=== PATIENT | male | born 2000 | race Two or more races ===

== ENCOUNTER 2024-07-13 10:05 | Observation (INO) ==
[2024-07-13] MEDS: ONDANSETRON INJ 2 MG/ML 2 ML VIAL IV STA (10:53)
[2024-07-13] MEDS: fentaNYL citrate PF 100 MCG/2 ML VIAL IV STA (10:53)
[2024-07-13 11:00] LABS: Basophils # (auto) 0.02 K/uL (0.00-0.20); Basophils % (auto) 0.2 %; Eosinophils # (auto) 0.02 K/uL (0.00-0.50); Eosinophils % (auto) 0.2 %; Hematocrit (blood only) 46.8 % (42.0-52.0); Immature Granulocytes # (auto) 0.03 K/uL (0.01-0.20); Immature Granulocytes % (auto) 0.4 %; Lymphocytes # (auto) 1.45 K/uL (1.20-3.40); Lymphocytes % (auto) 17.8 %; Mean Corpuscular Hemoglobin 28.1 pg (25.0-34.0); Mean Corpuscular Hgb Conc 34.2 g/dL (32.0-36.0); Mean Corpuscular Volume 82.2 fL (80.0-100.0); Mean Platelet Volume 10.2 fL (9.4-12.4); Monocytes # (auto) 0.72 K/uL (0.11-0.59); Monocytes % (auto) 8.8 %; Neutrophils # (auto) 5.91 K/uL (1.40-6.50); Neutrophils % (auto) 72.6 %; Platelet Count 254 K/uL (130-400); RDW Coefficient of Variation 11.9 % (11.5-14.5); RDW Standard Deviation 35.5 fL (36.4-46.3); Red Blood Count 5.69 M/uL (4.70-6.10); White Blood Count 8.15 K/ul (4.8-10.8)
--- NOTE | 2024-07-13 11:14 | Emergency Department Note ---
Impression & Plan Acute appendicitis, Right lower quadrant abdominal pain ED Provider Note HISTORY OF PRESENT ILLNESS: Patient is a 23-year-old male presenting with right lower quadrant abdominal pain. Patient reports that the pain started acutely 24 hours ago. Patient states the pain has gotten progressively worse over the last 24 hours. He has had multiple episodes of vomiting and profuse diarrhea. Denies any history of abdominal surgeries. He states pain is worse with walking or movement. He denies any measured fevers at home. Denies any chest pain or shortness of breath. Denies any dysuria or hematuria. ROS: as above PHYSICAL EXAM: Constitutional: Patient appears in no acute distress. HENT: Head: Normocephalic and atraumatic. Eyes: EOMI, PERRL Mouth/Throat: Mucous membranes moist. Neck: Trachea midline. Neck supple. Cardiovascular: RRR, No murmurs, rubs or gallops. Intact distal pulses. Pulmonary/Chest: No respiratory distress. Breath sounds clear and equal bilaterally. No wheezes or rales. Abdominal: Abdomen soft, no rebound or guarding. RLQ TTP Musculoskeletal: No edema, tenderness or deformity noted. Skin: Warm and dry. No rash, erythema, pallor or cyanosis Psychiatric: Appropriate mood and affect for situation. Neurological: Alert and keenly responsive. CN II-XII grossly intact, moving all extremities equally and fully. MDM: - Vitals signs stable - History obtained via patient. History as above. - Chronic conditions affecting care: None - Differential diagnoses include, but are not limited to: appendicitis; diverticulitis; inguinal hernia; testicular torsion; ureteral calculi - Order placed for continuous cardiac monitoring. At this time, monitor showed rate of 70 bpm with normal sinus rhythm, per my interpretation. - External medical records reviewed. - Laboratory workup interpreted by myself showed normal WBC; stable electrolytes; normal lactate; normal PT/INR; normal lipase; normal liver function - UA negative for infection - CT abdomen/pelvis with IV contrast showed appendiceal tip was dilated concerning for tip appendicitis. No fluid collection to suggest abscess. - Patient given 4 mg IV zofran and 50 mcg IV fentanyl for nausea and pain control. He was given IV Zosyn for antibiotic coverage. - Discussed case with surgery on-call. They plan to admit the patient to their service and take him to the OR for appendectomy. - Patient admitted to general surgery service for further evaluation and management. ASSESSMENT AND PLAN: Diagnosis: Acute RLQ pain; acute appendicitis Plan: admit Past Med/Surg History Problem List (Updated 07/13/24 @ 12:47 by Gayle Villalobos MD) Right lower quadrant abdominal pain (Acute) Acute appendicitis (Acute) Social History Smoking Status: Never smoker Feels Safe at Home: Yes Results & Data (ED) Vital Signs Vital Signs - 24 hr 07/13/24 10:17 07/13/24 11:05 07/13/24 11:06 Temperature 36.5 C Temperature Source Oral Pulse Rate 90 Pulse Rate [Finger] 69 Respiratory Rate 18 20 Respiratory Effort / Characteristics Non-Labored Spontaneous Respiratory Depth Normal Blood Pressure 135/85 Blood Pressure [Right Arm] 126/80 Blood Pressure Mean 101 Blood Pressure Mean [Right Arm] 95 Pulse Oximetry 96 92 91 Oxygen Delivery Method Room Air Room Air Room Air Sepsis Recent Fever Within 48 Hours No Sepsis New/Unexplained Change in Mental Status No Sepsis Action Taken by Nursing No Action Required 07/13/24 11:55 Temperature Temperature Source Pulse Rate 69 Pulse Rate [Finger] Respiratory Rate Respiratory Effort / Characteristics Respiratory Depth Blood Pressure Blood Pressure [Right Arm] Blood Pressure Mean Blood Pressure Mean [Right Arm] Pulse Oximetry Oxygen Delivery Method Sepsis Recent Fever Within 48 Hours Sepsis New/Unexplained Change in Mental Status Sepsis Action Taken by Nursing Laboratory Data 07/13/24 10:49 07/13/24 10:49 Lab Results 07/13/24 07/13/24 Range/Units 10:49 11:00 WBC 8.15 (4.8-10.8) K/ul RBC 5.69 (4.70-6.10) M/uL Hgb 16.0 (14.0-18.0) g/dl Hct 46.8 (42.0-52.0) % MCV 82.2 (80.0-100.0) fL MCH 28.1 (25.0-34.0) pg MCHC 34.2 (32.0-36.0) g/dL RDW Std Deviation 35.5 L (36.4-46.3) fL RDW Coeff of Joseph 11.9 (11.5-14.5) % Plt Count 254 (130-400) K/uL MPV 10.2 (9.4-12.4) fL Immature Gran % (Auto) 0.4 % Neut % (Auto) 72.6 % Lymph % (Auto) 17.8 % [place] % (Auto) 8.8 % Eos % (Auto) 0.2 % Baso % (Auto) 0.2 % Neut # (Auto) 5.91 (1.40-6.50) K/uL Lymph # (Auto) 1.45 (1.20-3.40) K/uL [place] # (Auto) 0.72 H (0.11-0.59) K/uL Eos # (Auto) 0.02 (0.00-0.50) K/uL Baso # (Auto) 0.02 (0.00-0.20) K/uL Immature Gran # (Auto) 0.03 (0.01-0.20) K/uL PT 10.9 (9.0-12.0) Seconds INR 1.0 (0.9-1.1) Sodium 139 (136-145) mmol/L Potassium 3.9 (3.5-5.1) mmol/L Chloride 105 (98-107) mmol/L Carbon Dioxide 28 (21-32) mmol/L Anion Gap 6 (3-11) BUN 9 (6-23) mg/dl Creatinine 0.82 (0.6-1.4) mg/dl Est Cr Clr Drug Dosing 118.3 ml/min eGFR 127.37 BUN/Creatinine Ratio 11.0 (10-20) Glucose 96 (70-99(Fasting)) mg/dl Lactate 0.8 (0.4-2.0) mmol/L Calcium 9.5 (8.6-10.3) mg/dl Total Bilirubin 0.4 (0.2-1.0) mg/dl AST 19 (13-39) U/L ALT 21 (7-52) U/L Alkaline Phosphatase 92 (34-104) U/L Total Protein 7.5 (6.0-8.3) gm/dl Albumin 4.4 (3.4-5.0) gm/dl Globulin 3.1 (2.5-4.0) gm/dl Albumin/Globulin Ratio 1.4 (0.9-2) Lipase 8 L (11-82) U/L Urine Color Yellow Urine Appearance Clear (Clear) Urine pH 5.5 (4.5-7.5) Ur Specific [place] 1.023 (1.000-1.030) Urine Protein Trace H (Negative) Urine Glucose (UA) Negative (Negative) Urine Ketones Trace H (Negative) Urine Blood Negative (Negative) Urine Nitrite Negative (Negative) Urine Bilirubin Negative (Negative) Urine Urobilinogen Negative (Negative) Ur Leukocyte Esterase Negative (Negative) Urine WBC (Auto) 0-5 (0-5) /hpf Urine RBC (Auto) 0-2 (0-2) /hpf U Hyaline Cast (Auto) 0-2 (0-2) /lpf U Epithel Cells (Auto) 0-2 (0-2) /hpf Urine Bacteria (Auto) None Seen (None Seen) Urine Mucus Present A (None Prsent) Administered Medications Discontinued Medications Fentanyl Citrate (Fentanyl Citrate Pf 100 Mcg/2 Ml Vial) 50 mcg IV NOW STA Stop: 07/13/24 10:37 Last Admin: 07/13/24 10:53 Dose: 50 mcg Documented By: BELLA Piperacillin Sod/Tazobactam Sod (Zosyn) 4.5 gm in 100 mls @ 200 mls/hr IV NOW ONE; Protocol Stop: 07/13/24 12:37 Last Admin: 07/13/24 12:35 Dose: 200 mls/hr Documented By: BELLA Ioversol (Optiray 320 100ml) 94 ml IV ONCE ONE Stop: 07/13/24 11:23 Last Admin: 07/13/24 11:22 Dose: 94 ml Documented By: DARIEN Ondansetron HCl (Ondansetron Inj 2 Mg/Ml 2 Ml Vial) 4 mg IV NOW STA Stop: 07/13/24 10:37 Last Admin: 07/13/24 10:53 Dose: 4 mg Documented By: BELLA Imaging Data Radiologist's Impression: Abdomen/Pelvis CT 07/13/24 10:37 CT SCAN OF THE ABDOMEN AND PELVIS WITH IV CONTRAST CLINICAL HISTORY: Right lower quadrant abdominal pain. COMPARISON STUDY: No priors. TECHNIQUE: Following the IV administration of 94 cc of Optiray 320, CT scan of the abdomen and pelvis is performed from the lung bases to the proximal femora. Images are reviewed in the axial, sagittal, and coronal planes. IV contrast was administered without complication. A dose lowering technique was utilized adhering to the principles of ALARA. CT DOSE: 829.51 mGy.cm FINDINGS: Lung bases: The heart is normal in size and without pericardial effusion. The lung bases are clear. Liver: The contrast-enhanced liver is normal in size, contour, and attenuation. Fatty infiltration is seen adjacent to the falciform ligament. There is no intrahepatic biliary ductal dilatation. The hepatic veins and portal veins are patent. Gallbladder: Unremarkable. Spleen: Normal in size and attenuation. Pancreas: Unremarkable. Adrenal glands: Unremarkable. Kidneys: The contrast enhanced kidneys are normal in size and without hydronephrosis. The kidneys enhance symmetrically. Abdominal vasculature: The abdominal aorta is normal in course and caliber. Bowel: Submucosal fat deposition is noted throughout the colon. The colon is largely decompressed, with equivocal mild wall thickening. There is no surrounding inflammation. No bowel obstruction is seen. The proximal appendix is normal. The appendiceal tip is dilated, measuring up to 10 mm diameter as seen on image #239. The wall of the distal appendix appears mildly thickened and hyperemic and there is a small amount of surrounding fluid. A tip appendicitis is not excluded. There is no evidence of abscess. Peritoneum: There is no intraperitoneal free air or abdominal ascites. There is a fat-containing umbilical hernia. Lymphadenopathy: None. Pelvic viscera: The bladder is partially distended and is circumferentially thick walled. The prostate and seminal vesicles are normal as visualized. Skeletal structures: No lytic or blastic lesions are seen. IMPRESSION: 1. The proximal appendix is normal. The appendiceal tip is dilated, with mild wall thickening and apparent hyperemia. There is a small amount of surrounding fluid and a tip appendicitis is not excluded. Surgical evaluation is advised. 2. There is no fluid collection to suggest abscess. 3. The bladder wall is circumferentially thickened. Correlate with clinical findings and urinalysis. 4. The colon is decompressed, with equivocal mild wall thickening. There is no surrounding inflammation and this is likely secondary to underdistention. Correlate clinically for evidence of a nonspecific colitis. 5. Additional findings as above. ACT 112: Negative or not required by law. Electronically signed by: Roosevelt Peterson M.D. 07/13/2024 11:58 AM Discharge Plan Visit Data Chief Complaint: Flu Like Symptoms Stated Complaint: ABD PAIN/LOWER RT SIDE, NAUSEA/VOMITING ED Provider: Gayle Villalobos Discharge Problem: Acute appendicitis, Right lower quadrant abdominal pain Patient Disposition: Home - Self-Care Discharge Instructions Interventions: ED Discharge Assessment Last Done: 07/13/24 12:43
[2024-07-13 11:15] LABS: Appearance Urine Clear (Clear); Bacteria Urine Automated None Seen (None Seen); Bilirubin Urine Negative (Negative); Blood Urine Negative (Negative); Cast Urine Automated 0-2 /lpf (0-2); Color Urine Yellow; Epithelial Cell Urine Auto 0-2 /hpf (0-2); Glucose Urine UA Negative (Negative); Ketones Urine Trace (Negative); Leukocyte Esterase Urine Negative (Negative); Mucus Urine Present (None Prsent); Nitrite Urine Negative (Negative); Protein Urine Trace (Negative); RBC Urine Automated 0-2 /hpf (0-2); Specific Gravity Urine 1.023 (1.000-1.030); Urobilinogen Urine Negative (Negative); WBC Urine Automated 0-5 /hpf (0-5); pH Urine 5.5 (4.5-7.5)
[2024-07-13 11:17] LABS: Albumin Globulin Ratio 1.4 (0.9-2); Albumin Level 4.4 gm/dl (3.4-5.0); Bilirubin,Total 0.4 mg/dl (0.2-1.0); Calcium 9.5 mg/dl (8.6-10.3); Creatinine Clr Calc Pharmacy 118.3 ml/min; Globulin 3.1 gm/dl (2.5-4.0); Potassium 3.9 mmol/L (3.5-5.1); Total Protein 7.5 gm/dl (6.0-8.3)
[2024-07-13] MEDS: OPTIRAY 320 100ml IV ONE (11:22)
[2024-07-13 11:25] LABS: Prothrombin Time 10.9 Seconds (9.0-12.0)
--- NOTE | 2024-07-13 12:00 | CT Scan Report ---
CT SCAN OF THE ABDOMEN AND PELVIS WITH IV CONTRAST CLINICAL HISTORY: Right lower quadrant abdominal pain. COMPARISON STUDY: No priors. TECHNIQUE: Following the IV administration of 94 cc of Optiray 320, CT scan of the abdomen and pelvi s is performed from the lung bases to the proximal femora. Images are reviewed in the axial, sagittal , and coronal planes. IV contrast was administered without complication. A dose lowering technique wa s utilized adhering to the principles of ALARA. CT DOSE: 829.51 mGy.cm FINDINGS: Lung bases: The heart is normal in size and without pericardial effusion. The lung bases are clear. Liver: The contrast-enhanced liver is normal in size, contour, and attenuation. Fatty infiltration is seen adjacent to the falciform ligament. There is no intrahepatic biliary ductal dilatation. The hep atic veins and portal veins are patent. Gallbladder: Unremarkable. Spleen: Normal in size and attenuation. Pancreas: Unremarkable. Adrenal glands: Unremarkable. Kidneys: The contrast enhanced kidneys are normal in size and without hydronephrosis. The kidneys enh ance symmetrically. Abdominal vasculature: The abdominal aorta is normal in course and caliber. Bowel: Submucosal fat deposition is noted throughout the colon. The colon is largely decompressed, wi th equivocal mild wall thickening. There is no surrounding inflammation. No bowel obstruction is seen . The proximal appendix is normal. The appendiceal tip is dilated, measuring up to 10 mm diameter as seen on image #239. The wall of the distal appendix appears mildly thickened and hyperemic and there is a small amount of surrounding fluid. A tip appendicitis is not excluded. There is no evidence of a bscess. Peritoneum: There is no intraperitoneal free air or abdominal ascites. There is a fat-containing umbi lical hernia. Lymphadenopathy: None. Pelvic viscera: The bladder is partially distended and is circumferentially thick walled. The prostat e and seminal vesicles are normal as visualized. Skeletal structures: No lytic or blastic lesions are seen. IMPRESSION: 1. The proximal appendix is normal. The appendiceal tip is dilated, with mild wall thickening and amish arent hyperemia. There is a small amount of surrounding fluid and a tip appendicitis is not excluded. Surgical evaluation is advised. 2. There is no fluid collection to suggest abscess. 3. The bladder wall is circumferentially thickened. Correlate with clinical findings and urinalysis. 4. The colon is decompressed, with equivocal mild wall thickening. There is no surrounding inflammati on and this is likely secondary to underdistention. Correlate clinically for evidence of a nonspecifi c colitis. 5. Additional findings as above. ACT 112: Negative or not required by law. Electronically signed by: Roosevelt Peterson M.D. 07/13/2024 11:58 AM
[2024-07-13] MEDS ORDERED: ROCURONIUM BROMIDE 10 MG/ML 5 ML VIAL IV ONE (12:28)
[2024-07-13] MEDS ORDERED: SUCCINYLCHOLINE CHLORIDE 20 MG/ML 10 ML VIAL IV ONE (12:28)
[2024-07-13] MEDS ORDERED: LIDOCAINE 2% 2 ML VIAL/AMP(20MG/ML) INFIL ONE (12:28)
[2024-07-13] MEDS ORDERED: PROPOFOL IV EMULSION 10 MG/ML 20 ML VIAL IV ONE (12:28)
[2024-07-13] MEDS ORDERED: MIDAZOLAM HCL 1 MG/ML 2ML VIAL ONE (12:29)
[2024-07-13] MEDS ORDERED: fentaNYL citrate PF 100 MCG/2 ML VIAL ONE ×2 (12:29→13:29)
[2024-07-13] MEDS: PIPERACILLIN/TAZOBACTAM 4.5 GM/100 ML BAG IV ONE (12:35)
--- NOTE | 2024-07-13 12:44 | Anesthesiology Consultation ---
Date of Service July 13, 2024 Assessment & Plan Chart Review Chart Review: Acceptable Risk for Surgery and Patient NOT seen in Pre Admission Testing Consults Requested none History Surgery Operation Date: 07/13/24 13:00 Proposed Procedures p Laparoscopic Appendectomy - Wayne Narvaez DO Height/Weight Height: 5 ft 4 in Weight: 70.9 kg Social History Smoking Status: Never smoker Physical Exam Vital Signs Last Vital Signs Temp 36.5 C 07/13/24 10:17 Pulse 69 07/13/24 11:55 Resp 20 07/13/24 11:06 BP 126/80 07/13/24 11:06 Pulse Ox 91 07/13/24 11:06 O2 Del Method Room Air 07/13/24 11:06 Testing Laboratory Results 07/13/24 10:49 07/13/24 10:49 PT 10.9 Seconds (9.0-12.0) 07/13/24 10:49 INR 1.0 (0.9-1.1) 07/13/24 10:49 Urine Color Yellow 07/13/24 10:49 Urine Appearance Clear (Clear) 07/13/24 10:49 Urine pH 5.5 (4.5-7.5) 07/13/24 10:49 Ur Specific [place] 1.023 (1.000-1.030) 07/13/24 10:49 Urine Protein Trace (Negative) H 07/13/24 10:49 Urine Glucose (UA) Negative (Negative) 07/13/24 10:49 Urine Ketones Trace (Negative) H 07/13/24 10:49 Urine Nitrite Negative (Negative) 07/13/24 10:49 Ur Leukocyte Esterase Negative (Negative) 07/13/24 10:49 Urine WBC (Auto) 0-5 /hpf (0-5) 07/13/24 10:49 Urine RBC (Auto) 0-2 /hpf (0-2) 07/13/24 10:49 U Hyaline Cast (Auto) 0-2 /lpf (0-2) 07/13/24 10:49 U Epithel Cells (Auto) 0-2 /hpf (0-2) 07/13/24 10:49 Urine Bacteria (Auto) None Seen (None Seen) 07/13/24 10:49
[2024-07-13] MEDS ORDERED: ePHEDrine sulfate 50 MG/ML AMP IV PRN (12:45)
[2024-07-13] MEDS ORDERED: ATROPINE SULFATE 0.1 MG/ML 10ML SYR IV PRN (12:45)
[2024-07-13] MEDS ORDERED: ONDANSETRON INJ 2 MG/ML 2 ML VIAL IV PRN ×2 (12:45→14:50)
--- NOTE | 2024-07-13 12:48 | History & Physical Report ---
Date of Service July 13, 2024 Assessment & Plan (1) Acute appendicitis: Plan: Discussed his options. Recommend a laparoscopic appendectomy. We discussed potential risks which include bleeding, infection, injury to another organ DVT PE [place] CVA etc. I have answered all of his questions. We will proceed ROBYN with laparoscopic appendectomy. He agrees with the plan. (2) Right lower quadrant abdominal pain: History of Present Illness Primary Care Provider: [facility] 23-year-old male with a 24-hour history of worsening abdominal pain. Pain is most severe in his right lower quadrant. He has also had multiple bouts of watery diarrhea. Past Med/Surg History Problem List (Updated 07/13/24 @ 12:47 by Gayle Villalobos MD) Right lower quadrant abdominal pain (Acute) Acute appendicitis (Acute) Social History Smoking Status: Never smoker Feels Safe at Home: Yes Review of Systems All systems reviewed & are unremarkable except as noted in HPI & below Physical Exam Constitutional: WD/WN, vitals as above no acute distress and not ill appear ing Eyes: PERRL, conjunctivae normal, anicteric sclerae EOM intact bilaterally ENMT: external ear and nose normal, oropharynx normal Ears: no hearing impairment Neck: trachea midline, no thyromegaly Respiratory: normal respiratory effort; no respiratory distress and does not use accessory muscles Cardiovascular: Rate/Rhythm: regular rate and regular rhythm Gastrointestinal (Abdomen): Soft. Exquisitely tender over McBurney's point. Positive Rovsing sign. Positive rebound Skin: no rashes, warm and dry Psychiatric: Orientation: alert, oriented x 3 and cooperative Results & Data Vital Signs (Past 12 Hours) Vital Signs Temp Pulse Pulse Resp BP BP Pulse Ox 07/13/24 11:55 69 07/13/24 11:06 69 20 126/80 91 07/13/24 11:05 92 07/13/24 10:17 36.5 C 90 18 135/85 96 O2 Del Method 07/13/24 11:55 07/13/24 11:06 Room Air 07/13/24 11:05 Room Air 07/13/24 10:17 Room Air
[2024-07-13] MEDS ORDERED: SUGAMMADEX SODIUM 200 MG/2 ML VIAL IV ONE (13:26)
[2024-07-13] MEDS: BUPIVACAINE/EPINEPHRINE 0.5% MPF 1:200,000 30 ML VIAL ONE (13:27)
--- NOTE | 2024-07-13 13:40 | Operative Report ---
PG Post Operative Report Pre & Post Diagnosis Operation Date: 07/13/24 13:00 Pre-Op Diagnosis: Acute appendicitis Post-Op Diagnosis: Acute appendicitis I identified the patient and participated in the time-out.: Yes Procedure Operation Date: 07/13/24 13:00 Actual Procedures p Laparoscopic Appendectomy(Not Applicable) - Wayne Narvaez DO Surgeon Wayne Narvaez DO Digital Marketing Assistant ADAMS keyes Estimated Blood Loss 5 Findings Consistent with Post-Op Diagnosis Specimens appendix Description of Procedure After informed consent was obtained the patient was taken to the operating room and placed in supine position. After successful intubation a Myers catheter was placed and the left arm was tucked. A Myers catheter was inserted sterilely. I began by making a periumbilical incision with an 11 blade scalpel and carried this down through the soft tissue using electrocautery. The anterior rectus fascia was opened using electrocautery and 2 #0 Vicryl stay sutures were placed. The peritoneum was elevated using hemostats and incised under direct vision using a Metzenbaum scissor. A finger sweep was performed. A 12 mm [place] trocar was placed and the abdomen was insufflated to 18 mmHg. A laparoscope was inserted and the abdomen was examined in 360. A suprapubic 5 mm port and a left lower quadrant 12 mm port were placed under direct vision. The patient was air planed to the left as well as placed in a slight Trendelenburg position. We began by looking in the right lower quadrant. We were able to readily identify the appendix and it was grossly inflamed. It had not perforated. There is a small amount of purulent fluid in the right lower quadrant and the pelvis. We immediately irrigated and suctioned this out. I was able to use primarily blunt dissection to pull the appendix away from the right lower quadrant sidewall. I was then able to use a TONY brown cartridge stapler to transect both the mesent leonidas of the appendix as well as the appendix itself at its base with the cecum. It was then placed into an Endo Catch bag and removed from the camera port site. We thoroughly irrigated the right lower quadrant as well as the pelvis. There was adequate hemostasis. I ran the small bowel backwards from the terminal ileum for about 6 feet all of which was normal. All the peritoneal surfaces were normal. Small/ large bowel, liver, stomach etc. all appeared grossly normal. We did a final irrigation and then removed all the trochars and desufflated the abdomen. The fascia of the camera port as well as the left lower quadrant were closed using 0 Vicryl in [id number] fashion. Wounds were all irrigated and closed using 4-0 Monocryl. Marcaine was injected around them for postoperative analgesia and skin glue used as a dressing. The patient was awakened extubated and transferred to recovery in stable condition. My DONOR SPECIALIST property assistant was present through the entire case. She assisted with prepping the patient and helped with exposure for port placement, helped run the camera and helped with fascial/wound closure at the end of the procedure as well as dressing placement. I attest to the content of the Intraoperative Record and any orders documented therein. Any exceptions are noted below. I attest to the content of the Intraoperative Record and any orders documented therein. Any exceptions are noted below.
[2024-07-13] MEDS: fentaNYL citrate PF 100 MCG/2 ML VIAL IV PRN (13:50)
--- NOTE | 2024-07-13 14:29 | Anesthesiology Progress Note ---
Date of Service July 13, 2024 Anesthesia Post Procedure Vital Signs Vital Signs: Temp Pulse Pulse Pulse Resp BP BP 07/13/24 14:15 73 22 119/86 07/13/24 14:05 78 20 146/80 H 07/13/24 13:55 80 12 108/67 07/13/24 13:46 36.1 C L 76 22 101/67 07/13/24 11:55 69 07/13/24 11:06 69 20 126/80 07/13/24 11:05 07/13/24 10:17 36.5 C 90 18 135/85 Pulse Ox O2 Del Method O2 Flow Rate 07/13/24 14:15 100 Oxymask 2 07/13/24 14:05 100 Oxymask 4 07/13/24 13:55 100 Oxymask 8 07/13/24 13:46 99 Oxymask 8 07/13/24 11:55 07/13/24 11:06 91 Room Air 07/13/24 11:05 92 Room Air 07/13/24 10:17 96 Room Air Pain Intensity Abdomen: Pain Intensity: 5 Transfer of Care Handoff Completed per policy Notes Mental Status: alert / awake / arousable Patient Amnestic to Procedure: Yes Nausea / Vomiting: adequately controlled Pain: adequately controlled Airway Patency, RR, SpO2: stable & adequate BP & HR: stable & adequate Hydration State: stable & adequate Anesthetic Complications: no major complications apparent and Pt Satisfied with anesthetic care
[2024-07-13] MEDS ORDERED: oxyCODONE HCL IR 5 MG TAB (IMMEDIATE RELEASE) PO PRN (14:50)
[2024-07-13] MEDS ORDERED: MoRPHine SULFATE 4 MG/ML 1 ML CARP\\VIAL IV PRN (14:50)
[2024-07-13] MEDS ORDERED: MoRPHine SULFATE 2 MG/ML CARP IV PRN (14:50)
[2024-07-13] MEDS: LACTATED RINGER'S 1,000 ML IV SCH (15:00)
[2024-07-13] MEDS: fentaNYL citrate PF 100 MCG/2 ML VIAL ONE (15:02)
[2024-07-13] MEDS: INFLUENZA VACC TS2024-25(6m+)/PF (IIV3) 0.5mL Syr IM ONE (19:56)
[2024-07-13] MEDS: ACETAMINOPHEN 325 MG TAB PO PRN (22:45)
[2024-07-14] MEDS: oxyCODONE HCL IR 5 MG TAB (IMMEDIATE RELEASE) PO PRN (04:17)
[2024-07-14 07:26] VITALS: BP 124/83; PULSE 64; RESP 16; TEMP 97.9; O2SAT 98
[2024-07-14 08:51] LABS: Basophils # (auto) 0.02 K/uL (0.00-0.20); Basophils % (auto) 0.3 %; Eosinophils # (auto) 0.01 K/uL (0.00-0.50); Eosinophils % (auto) 0.1 %; Hemoglobin 14.3 g/dl (14.0-18.0); Immature Granulocytes # (auto) 0.03 K/uL (0.01-0.20); Immature Granulocytes % (auto) 0.4 %; Lymphocytes # (auto) 2.07 K/uL (1.20-3.40); Lymphocytes % (auto) 27.2 %; Mean Corpuscular Hemoglobin 28.1 pg (25.0-34.0); Mean Corpuscular Volume 82.7 fL (80.0-100.0); Mean Platelet Volume 10.8 fL (9.4-12.4); Monocytes # (auto) 0.93 K/uL (0.11-0.59); Monocytes % (auto) 12.2 %; Neutrophils # (auto) 4.55 K/uL (1.40-6.50); Neutrophils % (auto) 59.8 %; Platelet Count 251 K/uL (130-400); RDW Coefficient of Variation 11.8 % (11.5-14.5); RDW Standard Deviation 35.6 fL (36.4-46.3); Red Blood Count 5.08 M/uL (4.70-6.10); White Blood Count 7.61 K/ul (4.8-10.8)
--- NOTE | 2024-07-14 09:01 | Surgery Progress Note ---
Date of Service July 14, 2024 Assessment & Plan (1) S/P laparoscopic appendectomy: Plan: POD 1 lap appy no complaints vss, tolerating diet , dermabond to port site CDI ok for d/c f/u 2 weeks , return precautions given Admission and Anticipated Discharge Date Admission Date: July 13, 2024 Subjective denies pain, cp, sob, f/c tolerating clears, advanced to reg Review of Systems Constitutional: no fever and no chills Respiratory: no dyspnea Cardiovascular: no chest pain Gastrointestinal: no abdominal pain, no bloating, no nausea and no vomiting Genitourinary: no dysuria Musculoskeletal: no muscle weakness Integumentary: no rash Psychiatric: no confusion Physical Exam Constitutional: cooperative and comfortable; no acute distress Respiratory: normal respiratory effort and able to speak in complete sentences; no respiratory distress Cardiovascular: Rate/Rhythm: regular rate Gastrointestinal (Abdomen): Inspection/Auscultation: + abdominal surgical incision; abdomen not distended Percussion/Palpation: abdomen soft Musculoskeletal: no cyanosis or clubbing, extremities motor strength 5/5 Psychiatric: A+Ox3, euthymic affect Results & Data Vital Signs (Past 12 Hours) Vital Signs Temp Pulse Pulse Resp BP Pulse Ox O2 Del Method 07/14/24 07:26 97.9 F 64 16 124/83 98 Room Air 07/14/24 06:19 76 94 Room Air 07/14/24 04:11 98.1 F 46 L 18 115/69 96 Room Air 07/13/24 23:28 98.2 F 58 L 16 128/76 94 Room Air Results CBC w Diff Results: RBC 5.08 M/uL (4.70-6.10) 07/14/24 WBC 7.61 K/ul (4.8-10.8) 07/14/24 Hgb 14.3 g/dl (14.0-18.0) 07/14/24 Hct 42.0 % (42.0-52.0) 07/14/24 MCV 82.7 fL (80.0-100.0) 07/14/24 MCH 28.1 pg (25.0-34.0) 07/14/24 MCHC 34.0 g/dL (32.0-36.0) 07/14/24 RDW Standard Deviation 35.6 fL (36.4-46.3) L 07/14/24 RDW Coefficient of Variation 11.8 % (11.5-14.5) 07/14/24 Plt Count 251 K/uL (130-400) 07/14/24 MPV 10.8 fL (9.4-12.4) 07/14/24 Neutrophils (%) (Auto) 59.8 % 07/14/24 Lymphocytes (%) (Auto) 27.2 % 07/14/24 Monocytes # (Auto) 0.93 K/uL (0.11-0.59) H 07/14/24 Eosinophils # (Auto) 0.01 K/uL (0.00-0.50) 07/14/24 Immature Granulocyte % (Auto) 0.4 % 07/14/24 Neutrophils # (Auto) 4.55 K/uL (1.40-6.50) 07/14/24 Lymphocytes # (Auto) 2.07 K/uL (1.20-3.40) 07/14/24 Monocytes # (Auto) 0.93 K/uL (0.11-0.59) H 07/14/24 Eosinophils # (Auto) 0.01 K/uL (0.00-0.50) 07/14/24 Basophils # (Auto) 0.02 K/uL (0.00-0.20) 07/14/24 Immature Granulocyte # (Auto) 0.03 K/uL (0.01-0.20) 4 PG Care Time/CCT Total # of Minutes Spent Total Time Spent with Patient: Total time spent is greater than 50% in coordination of care (as documented) at patient's floor/unit and/or counseling patient: Coding Level of Care Code 16584 Post Operative Follow-Up Diagnoses S/P laparoscopic appendectomy Z90.49
[2024-07-14 09:05] LABS: Calcium 9.4 mg/dl (8.6-10.3); Creatinine Clr Calc Pharmacy 144.8 ml/min
--- NOTE | 2024-07-14 11:59 | Discharge Summary ---
Date of Service July 14, 2024 Admission HPI Per Admitting Provider 23-year-old male with a 24-hour history of worsening abdominal pain. Pain is most severe in his right lower quadrant. He has also had multiple bouts of watery diarrhea. Principal Diagnosis acute appendicitis Discharge Exam Constitutional cooperative and comfortable; no acute distress Respiratory normal respiratory effort and able to speak in complete sentences; no respiratory distress Cardiovascular Rate/Rhythm: regular rate Gastrointestinal (Abdomen) Inspection/Auscultation: + abdominal surgical incision; abdomen not distended Percussion/Palpation: abdomen soft Musculoskeletal no cyanosis or clubbing, extremities motor strength 5/5 Psychiatric A+Ox3, euthymic affect Discharge Data Allergies Allergy/AdvReac Type Severity Reaction Status Date / Time No Known Allergies Allergy Unverified 07/13/24 13:55 Consultations 07/13/24 12:41 ED Decision to Admit Stat Procedures Performed Operation Date: 07/13/24 13:00 Actual Procedures p Laparoscopic Appendectomy(Not Applicable) - Wayne Narvaez, Ordered Studies 07/13/24 10:37 CT abd pelvis IV con only Stat Hospital Course (1) S/P laparoscopic appendectomy: This is a 23 yo male who presented to the [facility] ED on 07/13/24 with abdominal pain. Workup in the ED showed CT a/p concerning for acute appendicitis. The patient was tender to palpation in the RLQ. Patient made NPO with IVF and booked for the OR. On 07/13/24 the patient went to the OR with Dr Narvaez for a laparoscopic appendectomy. The patient tolerated the procedure well, see operative report for full details. Post operatively the patient's diet was advanced, pain managed on prn meds, and incisions clean/dry/intact. On POD 1 the patient was deemed stable for discharge to home.Given return precautions , follow up recommendations and all questions answered. Total Time Total Time Spent Total Time Spent (In Minutes): 10 Discharge Plan Discharge Items Patient Disposition: Home - Self-Care Reason For Visit: S/P LAP APPY Discharge Diagnosis: acute tip appendicitis Activity: Per Instructions section Lifting: No more than 10 pounds Bathing Comment: you can shower, no soaking in pools/baths for 2 weeks Exercise/Sports: Wait until after follow-up appointment Driving/Machine Use: no driving if taking narcotic pain medication Non-emergency contact: Surgeon Call non-emergency contact if: you have any medication questions, your symptoms worsen, your temperature is above 101.5, your wound has increased redness, your wound has increased drainage and your wound pain has increased Follow-up/Referrals: Wayne Narvaez, [Surgeon] - 08/06/24 1:00 pm (Call office for follow up in 2 weeks ) PCP,NO [Physician] - Diet: Regular Addtl Attending Provider Instructions: SPECIAL CARE INSTRUCTIONS: You have surgical glue called dermabond on your surgical site incisions. You may shower with this on. This will tend to come off within a couple of weeks. Do not pick at it. * You may shower 07/14 . NO soaking in pools or baths for 2 weeks * No lifting greater than 10lbs. No exercise until cleared by surgeon. Light walking is accepted. * No driving while taking narcotic pain medication * No drinking alcohol while taking narcotic pain medication * May use Ibuprofen/Tylenol over the counter for pain as tolerated. Do not exceed 3grams of Tylenol per 24 hours * Expect some swelling and bruising. * Diet regular Call your doctor if: * Temperature above 101 degrees, nausea/vomiting, fever/chills * Pain not relieved by pain medicine ordered * There is increased drainage or redness from any incision * You have any unanswered questions or concerns [phone]. FOLLOW UP VISIT: If not already scheduled, please call the office for a follow-up visit. Office Pending Studies at Discharge: Yes Stand-Alone Forms: My [facility], Work/School Release, Important Visit Information Medications and DC Order Prescriptions: New oxycodone 5 mg tablet 5 - 10 mg PO .[id number] MDD no more than 6 tabs in 24hours PRN (Reason: pain) Qty: 15 0RF Discharge Orders: Discharge Order (Routine); Ordered 07/14/24 Ordered By: Randy York/Other Patient Handouts: Appendectomy Lap Dc Admission Data Admit Date/Time: 07/13/24 13:45 Attending Provider: Wayne Narvaez Admit Provider: Wayne Narvaez Primary Care Provider: [facility] Other Providers: Wayne Narvaez Other Interventions: Discharge Summary Assessment (RN) Last Done: 07/14/24 11:07 Coding Diagnoses S/P laparoscopic appendectomy Z90.49
== END 2024-07-14 11:40 | disposition home or self-care (01) ==
LOC: ED 10:05 → 3E 12:40 → OR 12:40